=== PATIENT | female | born 1970 | race Asian ===

== ENCOUNTER 2017-10-25 17:58 | Emergency (ER) | payer OTHER ==
[~2017-10-25] VITALS: Ht 165.1 cm; Wt 63.5 kg
[2017-10-25 18:12] VITALS: Ht 165.1 cm; Wt 63.5 kg
[2017-10-25 19:08] LABS: CALCIUM 8.8 mg/dL (8.5-10.1); CARBON DIOXIDE 30.2 mmol/L (21-32); CHLORIDE SERUM 102 mmol/L (98-107); CREATININE SERUM 0.8 mg/dL (0.6-1.0); GFR1 > 60 mL/min; GLUCOSE SERUM 121 mg/dL (74-106); POTASSIUM SERUM 3.1 mmol/L (3.5-5.1); SODIUM SERUM 139 mmol/L (136-145)
[2017-10-25 19:46] VITALS: BP 143/103
== END 2017-10-25 19:46 | disposition home or self-care (01) ==
LOC: ED 17:58
PROVIDERS: Emergency Medicine
DX: S16.1XXA Strain of muscle, fascia and tendon at neck level, initial encounter (principal); S29.011A Strain of muscle and tendon of front wall of thorax, initial encounter; S39.012A Strain of muscle, fascia and tendon of lower back, initial encounter; V43.92XA Unspecified car occupant injured in collision with other type car in traffic accident, initial encounter; Y93.19 Activity, other involving water and watercraft; Y92.488 Other paved roadways as the place of occurrence of the external cause; Y99.8 Other external cause status
CPT/HCPCS: 36415